=== PATIENT | female | born 1940 | race Caucasian/White ===

== ENCOUNTER 2018-12-06 12:09 | Emergency (ER) | payer MEDICARE, BC ==
[~2018-12-06] VITALS: Ht 167.6 cm; Wt 59.0 kg
[2018-12-06] MEDS ORDERED: ONDANSETRON 4 MG/2 ML VIAL IV ONE (12:45)
--- NOTE | 2018-12-06 12:45 | NUR ---
Patient walked into ER with daughter c/o N/V x3 days with symptoms worse in AM
[2018-12-06 12:46] LABS: BASOPHILS % (AUTO) 0.5 % (0.0-2.0); EOSINOPHILS % (AUTO) 0.5 % (0.0-7.0); HEMATOCRIT 37.4 % (31.2-41.9); HEMOGLOBIN 12.1 g/dL (10.9-14.3); LYMPHOCYTES % (AUTO) 25.3 % (20.5-51.5); MEAN CORPUSCULAR HEMOGLOBIN 27.4 uug (24.7-32.8); MEAN CORPUSCULAR HGB CONC 32 g/dL (32.3-35.6); MEAN CORPUSCULAR VOLUME 84.6 fL (75.5-95.3); MONOCYTES # (AUTO) 0.3 K/uL (2.0-10.0); MONOCYTES % (AUTO) 6.2 % (0.0-11.0); NEUTROPHILS # (AUTO) 2.8 K/uL (1.8-8.9); NEUTROPHILS % (AUTO) 67.5 % (38.5-71.5); PLATELET COUNT (AUTO) 149 K/uL (179-408); RED BLOOD CELL COUNT(AUTO) 4.42 MIL/uL (3.63-4.92); WHITE BLOOD COUNT (AUTO) 4.1 K/uL (3.8-11.8)
[2018-12-06 12:54] LABS: CARBON DIOXIDE 26 mmol/L (21-32); CHLORIDE 99 mmol/L (98-107); CREATININE 1.2 mg/dL (0.6-1.3); GLUCOSE 142 mg/dL (74-106); POTASSIUM 3.7 mmol/L (3.5-5.1); UREA NITROGEN, BLOOD 35 mg/dL (7-18)
[2018-12-06] MEDS ORDERED: ONDANSETRON 4 MG/2 ML VIAL ONE ×2 (12:55→15:38)
[2018-12-06 12:59] LABS: ALANINE AMINOTRANSFERASE 20 U/L (14-59); ALKALINE PHOSPHATASE 68 U/L (50-136); ASPARTATE AMINOTRANSFERASE 24 U/L (15-37); BILIRUBIN,DIRECT 0.3 mg/dL (0.0-0.2); BILIRUBIN,TOTAL 1.2 mg/dL (0.2-1.0); LIPASE 28 U/L (73-393); TOTAL PROTEIN, SERUM 7.4 g/dL (6.4-8.2)
[2018-12-06] MEDS ORDERED: IV NORMAL SALINE 1000 ML BAG IV ONE (13:45)
[2018-12-06 14:26] LABS: *BILIRUBIN,URIN NEGATIVE (NEGATIVE); *COLOR,URINE YELLOW (YELLOW); *KETONES,URINE NEGATIVE (NEGATIVE); *UROBILINOGEN,URINE 0.2 E.U./dl (NORMAL); LEUKOCYTE ESTERASE ,URINE 1+ (NEGATIVE); NITRITE, URINE NEGATIVE (NEGATIVE); UGLUCOSE NEGATIVE (NEGATIVE)
[2018-12-06 14:30] LABS: *BLOOD, URINE TRACE (NEGATIVE); *CLARITY,URINE SLIGHTLY CLOUDY (CLEAR)
[2018-12-06 14:39] LABS: BACTERIA,URINE MODERATE /HPF (NONE SEEN); RBC,URINE 0-3 /HPF (0-3); SQUAMOUS EPITHELIAL CELL,UR FEW /HPF (NONE SEEN)
--- NOTE | 2018-12-06 15:46 | NUR ---
IV removed. Catheter intact and site benign. Pressure and 4x4 gauze applied to site. No bleeding noted.
[2018-12-06 15:55] VITALS: BP 142/88
--- NOTE | 2018-12-06 15:55 | NUR ---
Patient discharged to home in stable conditon with daughter taking patient home. Written and verbal after care instructions given. Patient verbalizes understanding of instructions.
== END 2018-12-06 15:56 | disposition home or self-care (01) ==
LOC: ER 12:09
DX: R11.2 Nausea with vomiting, unspecified (principal); I10 Essential (primary) hypertension; E11.9 Type 2 diabetes mellitus without complications; Z95.0 Presence of cardiac pacemaker
CPT/HCPCS: 36415; 71045; 80048; 80076; 81001; 83690; 84484; 85025; 87086; 93005; 96374; 99284; J2405; 70030-TC; A4663; J7030

== ENCOUNTER 2019-03-28 05:53 | Emergency (ER) | payer MEDICARE, BC ==
[~2019-03-28] VITALS: Ht 170.2 cm; Wt 59.0 kg
[2019-03-28] MEDS ORDERED: ESTRADIOL 0.5 MG (06:07)
[2019-03-28] MEDS ORDERED: SYNTHROID 75 MCG (06:07)
[2019-03-28] MEDS ORDERED: [UNRECOGNIZED DRUG - CODE] (06:07)
[2019-03-28] MEDS ORDERED: PANTOPRAZOLE TAB 40MG (06:07)
--- NOTE | 2019-03-28 06:35 | NUR ---
Dr. Miles at bedside for MSE.
--- NOTE | 2019-03-28 06:40 | NUR ---
Urine collected, sent to lab.
[2019-03-28] MEDS ORDERED: IV NORMAL SALINE 1000 ML BAG IV ONE (06:45)
[2019-03-28] MEDS ORDERED: PANTOPRAZOLE SODIUM 40 MG VIAL IV ONE (06:45)
[2019-03-28] MEDS ORDERED: ONDANSETRON 4 MG/2 ML VIAL IV ONE (06:45)
[2019-03-28] MEDS ORDERED: ONDANSETRON 4 MG/2 ML VIAL ONE (06:48)
[2019-03-28] MEDS ORDERED: PANTOPRAZOLE SODIUM 40 MG VIAL ONE (06:48)
--- NOTE | 2019-03-28 06:53 | NUR ---
Xray at bedside.
[2019-03-28 06:55] LABS: BASOPHILS % (AUTO) 0.7 % (0.0-2.0); EOSINOPHILS # (AUTO) 0.1 K/uL (0.0-0.7); EOSINOPHILS % (AUTO) 1.6 % (0.0-7.0); HEMATOCRIT 35.1 % (31.2-41.9); HEMOGLOBIN 11.6 g/dL (10.9-14.3); LYMPHOCYTES % (AUTO) 21.7 % (20.5-51.5); MEAN CORPUSCULAR HEMOGLOBIN 28.2 uug (24.7-32.8); MEAN CORPUSCULAR HGB CONC 33 g/dL (32.3-35.6); MEAN CORPUSCULAR VOLUME 85.4 fL (75.5-95.3); MONOCYTES # (AUTO) 0.5 K/uL (2.0-10.0); MONOCYTES % (AUTO) 9.6 % (0.0-11.0); NEUTROPHILS # (AUTO) 3.2 K/uL (1.8-8.9); NEUTROPHILS % (AUTO) 66.4 % (38.5-71.5); PLATELET COUNT (AUTO) 158 K/uL (179-408); RED BLOOD CELL COUNT(AUTO) 4.11 MIL/uL (3.63-4.92); WHITE BLOOD COUNT (AUTO) 4.8 K/uL (3.8-11.8)
[2019-03-28 06:57] LABS: *BILIRUBIN,URIN NEGATIVE (NEGATIVE); *BLOOD, URINE 1+ (NEGATIVE); *CLARITY,URINE SLIGHTLY CLOUDY (CLEAR); *COLOR,URINE YELLOW (YELLOW); *KETONES,URINE NEGATIVE (NEGATIVE); *UROBILINOGEN,URINE 0.2 E.U./dl (NORMAL); LEUKOCYTE ESTERASE ,URINE 2+ (NEGATIVE); NITRITE, URINE NEGATIVE (NEGATIVE); UGLUCOSE NEGATIVE (NEGATIVE)
--- NOTE | 2019-03-28 06:57 | NUR ---
Report given to Giovanni maria.
[2019-03-28 07:01] LABS: CARBON DIOXIDE 25 mmol/L (21-32); CHLORIDE 108 mmol/L (98-107); CREATININE 0.9 mg/dL (0.6-1.3); GLUCOSE 113 mg/dL (74-106); UREA NITROGEN, BLOOD 18 mg/dL (7-18)
[2019-03-28 07:06] LABS: BACTERIA,URINE FEW /HPF (NONE SEEN); SQUAMOUS EPITHELIAL CELL,UR FEW /HPF (NONE SEEN); YEAST,URINE MODERATE /HPF (NONE SEEN)
[2019-03-28 07:07] LABS: ALANINE AMINOTRANSFERASE 13 U/L (14-59); ALKALINE PHOSPHATASE 38 U/L (50-136); ASPARTATE AMINOTRANSFERASE 13 U/L (15-37); BILIRUBIN,DIRECT 0.2 mg/dL (0.0-0.2); BILIRUBIN,TOTAL 0.6 mg/dL (0.2-1.0); LIPASE 89 U/L (73-393); TOTAL PROTEIN, SERUM 7.4 g/dL (6.4-8.2)
[2019-03-28] MEDS ORDERED: ONDANSETRON ODT 4 MG TAB.RAPDIS ONE (07:28)
--- NOTE | 2019-03-28 11:09 | NUR ---
PT WAS D/C'd TO HOME. D/C INSTRUCTIONS GIVEN TO THE PT BY DR ESCOBEDO.
[2019-03-28 11:12] VITALS: BP 126/81
== END 2019-03-28 11:12 | disposition home or self-care (01) ==
LOC: ER 05:56
DX: R11.2 Nausea with vomiting, unspecified (principal); N39.0 Urinary tract infection, site not specified; I10 Essential (primary) hypertension; E11.9 Type 2 diabetes mellitus without complications; Z95.0 Presence of cardiac pacemaker; Z79.899 Other long term (current) drug therapy
CPT/HCPCS: 36415; 71045; 74021; 80048; 80076; 81000; 81001; 83690; 84484; 85025; 85730; 87086; 93005; 96374; 96375; 99284; C9113; J2405; 70030-TC; A4663; J7030; Q0162

== ENCOUNTER 2019-05-26 16:33 | Inpatient (IN) | payer MEDICARE, BC ==
[~2019-05-26] VITALS: Ht 170.2 cm; Wt 57.2 kg
[~2019-05-26 16:33] MED LIST: ESTRADIOL 0.5 MG; PANTOPRAZOLE TAB 40MG; SYNTHROID 75 MCG; [UNRECOGNIZED DRUG - CODE]
[2019-05-26 18:06] LABS: BASOPHILS % (AUTO) 0.6 % (0.0-2.0); EOSINOPHILS % (AUTO) 0.2 % (0.0-7.0); HEMATOCRIT 35.1 % (31.2-41.9); HEMOGLOBIN 11.6 g/dL (10.9-14.3); LYMPHOCYTES # (AUTO) 0.6 K/uL (20.0-40.0); LYMPHOCYTES % (AUTO) 11.1 % (20.5-51.5); MEAN CORPUSCULAR HEMOGLOBIN 28.6 uug (24.7-32.8); MEAN CORPUSCULAR HGB CONC 33 g/dL (32.3-35.6); MEAN CORPUSCULAR VOLUME 86.2 fL (75.5-95.3); MONOCYTES # (AUTO) 0.2 K/uL (2.0-10.0); MONOCYTES % (AUTO) 4.3 % (0.0-11.0); NEUTROPHILS # (AUTO) 4.6 K/uL (1.8-8.9); NEUTROPHILS % (AUTO) 83.8 % (38.5-71.5); PLATELET COUNT (AUTO) 147 K/uL (179-408); RED BLOOD CELL COUNT(AUTO) 4.07 MIL/uL (3.63-4.92); WHITE BLOOD COUNT (AUTO) 5.5 K/uL (3.8-11.8)
[2019-05-26 18:19] LABS: CREATININE 0.8 mg/dL (0.6-1.3); POTASSIUM 3.7 mmol/L (3.5-5.1)
[2019-05-26 18:29] LABS: BILIRUBIN,DIRECT 0.3 mg/dL (0.0-0.2); BILIRUBIN,TOTAL 1.2 mg/dL (0.2-1.0); TOTAL PROTEIN, SERUM 7.3 g/dL (6.4-8.2)
--- NOTE | 2019-05-26 19:17 | NUR ---
PATIENT UNABLE TO RECALL ALL OF HOME MEDICATION AND DOSAGES AT THIS TIME.
--- NOTE | 2019-05-26 19:17 | NUR ---
HAND OFF AND SBAR FROM OUTGOING RN DAY SHIFT. DAUGHTER NUMBER EVANGELINA [phone] STATES WILL REFAX MEDICATION LIST AGAIN SINCE SHE SENT IT 5PM BUT HAS NOT RECEIVED ANY IN THE ER
--- NOTE | 2019-05-26 19:55 | NUR ---
ABLE TO RECONCILE MEDICATIONS OVER THE PHONE FROM DAUGHTER [phone] TRIED TO CALL THE TELE FLOOR BUT STILL WAITING FOR RN INCOMING QUALITY ASSURANCE MONITOR CHASSIS FOR ENDORSEMENT. KEPT COMFORTABLE. SIDERAILSX2 UP , BED AT LOWEST POSITION. MONITORED ACCORDINGLY
[2019-05-26] MEDS ORDERED: ONDANSETRON 4 MG/2 ML VIAL IV PRN (20:00)
[2019-05-26] MEDS ORDERED: Z GUARD REMEDY PASTE 57 GM TUBE TOP PRN (20:00)
[2019-05-26] MEDS ORDERED: MAGNESIUM HYDROXIDE 30 ML LIQUID UDC PO PRN (20:00)
[2019-05-26] MEDS ORDERED: ACETAMINOPHEN 325 MG TABLET PO PRN (20:00)
[2019-05-26] MEDS ORDERED: HYDROCODONE/APAP 5-325MG TABLET PO PRN (20:00)
[2019-05-26] MEDS ORDERED: GLIM1TAB3 PO (20:12)
[2019-05-26] MEDS ORDERED: LEVO75TA PO (20:12)
[2019-05-26] MEDS ORDERED: LOSA25TA27 PO (20:12)
[2019-05-26] MEDS ORDERED: ROPI5TAB PO (20:13)
[2019-05-26] MEDS ORDERED: SIMV10TA6 PO (20:13)
[2019-05-26] MEDS ORDERED: URSO250T11 PO (20:13)
[2019-05-26] MEDS ORDERED: TRIA1CAP2 PO (20:13)
[2019-05-26] MEDS ORDERED: ONDA4TAB5 GT (20:13)
[2019-05-26] MEDS ORDERED: LIPA1CAP8 PO (20:13)
[2019-05-26] MEDS ORDERED: PANT40TA4 PO (20:13)
--- NOTE | 2019-05-26 21:17 | NUR ---
HAND OFF DONE TO VANE JACKSON FOR TELE FLOOR. PT READY FOR TRANSPORT VIA [facility]
--- NOTE | 2019-05-26 21:26 | NUR ---
PT WILL BE ADMITTED TO TELE RM [address] LOCK
--- NOTE | 2019-05-26 21:47 | NUR ---
TRANSPORTED BY MOLD INJECTOR VIA WHEELCHAIR. PT NAD AND COMPLIANT. DENIES NAUSEA BUT EMESISX1, PT DECLINED MEDICINE FOR NAUSEA AT THIS TIME. MD AWARE. NO OTHER SYMPTOMS
[2019-05-26] MEDS ORDERED: ENOXAPARIN SODIUM 40 MG/0.4 ML DISP.SYRIN SQ ONE (22:00)
--- NOTE | 2019-05-26 22:00 | NUR ---
Admitted a 78 y.o female patient from ER via wheelchair DX: near Syncope. Patient ASYA QUEZADA noted. Attached to Tele monitor: Atrial pacing rate 60's. Assessment done. Routine care, fall and safety precautions discussed with patient. Patient seems to understand instructions but with forgetfulness. Spoke to patient's daughter Veronica cell # [phone]. PMH obtained from her. Plan of care also discussed with her. Addendum: 05/27/19 at 0108 by MANUEL POST RN Amended: Links added. Addendum: 05/27/19 at 0110 by MANUEL POST RN Amended: Links added.
[2019-05-26 22:24] VITALS: BP 146/72
[2019-05-26] MEDS: IV NS 1000 ML 1,000 ML IV PRN (22:59)
--- NOTE | 2019-05-26 23:15 | NUR ---
Up to the BR with assist. Patient denies dizziness. Voided.
--- NOTE | 2019-05-27 01:00 | NUR ---
Assisted up to the BR again. Continues to deny dizziness. Gait steady. Patient very appreciative of care.
[2019-05-27 06:13] VITALS: BP 141/61
[2019-05-27 06:30] LABS: BASOPHILS % (AUTO) 0.7 % (0.0-2.0); EOSINOPHILS # (AUTO) 0.1 K/uL (0.0-0.7); EOSINOPHILS % (AUTO) 1.5 % (0.0-7.0); HEMATOCRIT 34.3 % (31.2-41.9); HEMOGLOBIN 11.5 g/dL (10.9-14.3); LYMPHOCYTES # (AUTO) 1.5 K/uL (20.0-40.0); LYMPHOCYTES % (AUTO) 33.1 % (20.5-51.5); MEAN CORPUSCULAR HEMOGLOBIN 28.5 uug (24.7-32.8); MEAN CORPUSCULAR HGB CONC 34 g/dL (32.3-35.6); MEAN CORPUSCULAR VOLUME 84.7 fL (75.5-95.3); MONOCYTES # (AUTO) 0.4 K/uL (2.0-10.0); MONOCYTES % (AUTO) 7.8 % (0.0-11.0); NEUTROPHILS # (AUTO) 2.6 K/uL (1.8-8.9); NEUTROPHILS % (AUTO) 56.9 % (38.5-71.5); PLATELET COUNT (AUTO) 149 K/uL (179-408); RED BLOOD CELL COUNT(AUTO) 4.04 MIL/uL (3.63-4.92); WHITE BLOOD COUNT (AUTO) 4.7 K/uL (3.8-11.8)
--- NOTE | 2019-05-27 06:31 | NUR ---
No c/o pain or dizziness all night. VS stable. IVF infusing well.
[2019-05-27] MEDS: LEVOTHYROXINE SODIUM 75 MCG TABLET PO SCH (06:36)
[2019-05-27 06:43] LABS: CARBON DIOXIDE 27 mmol/L (21-32); CHLORIDE 107 mmol/L (98-107); CHOLESTEROL 81 mg/dL (<200); CREATININE 0.6 mg/dL (0.6-1.3); GLUCOSE 79 mg/dL (74-106); HDL CHOLESTEROL 42 mg/dL (40-60); MAGNESIUM 1.5 mg/dL (1.8-2.4); PHOSPHOROUS 2.5 mg/dL (2.5-4.9); POTASSIUM 3.3 mmol/L (3.5-5.1); TRIGLYCERIDES 65 MG/DL (30-150); UREA NITROGEN, BLOOD 9 mg/dL (7-18)
[2019-05-27 06:51] LABS: THYROID STIMULATING HORMONE 4.164 mIU/mL (0.358-3.740)
--- NOTE | 2019-05-27 07:15 | NUR ---
RECEIVED PATIENT LAYING IN BED, AOX3. PATIENT DENIES ANY PAIN AND DISCOMFORT. NO ACUTE DISTRESS NOTED AT THIS TIME. JAMAAL IN LOWEST POSITION, SIDE RAILS UP X2, CALL LIGHT WITHIN REACH, BED ALARM ON. WILL CONTINUE TO MONITOR.
[2019-05-27] MEDS ORDERED: DEXTROSE 50% 50 ML DISP.SYRIN IV PRN (10:00)
[2019-05-27 11:00] VITALS: BP 134/60
[2019-05-27] MEDS ORDERED: POTASSIUM CHLORIDE 20 MEQ TAB.PRT.SR PO ONE (11:00)
[2019-05-27] MEDS: MAGNESIUM SULFATE/D5W 100 ML IV SCH ×2 (11:08→12:45)
[2019-05-27 11:18] LABS: *BILIRUBIN,URIN NEGATIVE (NEGATIVE); *BLOOD, URINE 1+ (NEGATIVE); *CLARITY,URINE CLOUDY (CLEAR); *COLOR,URINE YELLOW (YELLOW); *KETONES,URINE NEGATIVE (NEGATIVE); *UROBILINOGEN,URINE 0.2 E.U./dl (NORMAL); LEUKOCYTE ESTERASE ,URINE 3+ (NEGATIVE); NITRITE, URINE NEGATIVE (NEGATIVE); UGLUCOSE NEGATIVE (NEGATIVE)
[2019-05-27 11:38] LABS: BACTERIA,URINE FEW /HPF (NONE SEEN); RBC,URINE 0-3 /HPF (0-3); SQUAMOUS EPITHELIAL CELL,UR FEW /HPF (NONE SEEN); WBC,URINE 20-50 /HPF (0-3)
[2019-05-27] MEDS: BLOOD SUGAR DIAGNOSTIC 1 EACH STRIP VI SCH ×3 (11:46→22:16)
[2019-05-27] MEDS: INSULIN REGULAR, HUMAN 300 UNIT/3 ML VIAL SQ PRN ×2 (11:46→22:20)
[2019-05-27] MEDS: CREON 24000 UNIT PO SCH ×2 (13:09→17:50)
[2019-05-27] MEDS: CEphaleXIN 500 MG CAPSULE PO SCH ×3 (14:00→21:59)
--- NOTE | 2019-05-27 15:10 | NUR ---
WENT IN TO DO PATIENT ROUNDING, PATIENT WAS NO WHERE TO BE FOUND. CALLED SECURITY REVIEW CAMERAS AND PATIENT WAS NOT FOUND. PATIENTS DAUGHTER THEN CALL AND INFORMED US PATIENT WAS AT [facility]. PATIENT REFUSES TO RETURN TO FACILITY AND LEAVING AMA.
--- NOTE | 2019-05-27 17:37 | NUR ---
KENISHA, but now back at hospital. Drastically increased paranoia noted. A/O on assessment, but noted unrelenting mistrust and suspicion toward hospital staff. Call to Dr. Gunn regarding change in behavior, no new orders received. Pending PET eval. Team called, en route to hospital for face to face assessment. Informed/updated daughter of patient status.
--- NOTE | 2019-05-27 19:30 | NUR ---
Received patient in bed AA&Ox2 w/ forgetfulness. No SOB noted, not in distress at this time. Continue w/ 1:1 sitter for safety. No IV at this time, offered patient to reinsert IV but stated she wants to wait for her daughter. Safety measures observed. Call light in reach
[2019-05-27] MEDS: ENOXAPARIN SODIUM 40 MG/0.4 ML DISP.SYRIN SQ SCH ×2 (21:00→21:58)
[2019-05-27] MEDS: IV NS 1000 ML 1,000 ML IV PRN (21:13)
--- NOTE | 2019-05-27 21:30 | NUR ---
Inserted IV to R AC 20g intact and patent, w/ IV NS 0.9% @ 75cc/hr. Patient refused her Lovenox, explained risks and benefits, still refused. Daughter at bedside. Will continue to monitor
[2019-05-28] MEDS ORDERED: MAG HYDROX/AL HYDROX/SIMETH 30 ML LIQUID UDC PO PRN (00:30)
--- NOTE | 2019-05-28 02:00 | NUR ---
IV site was pulled out, patient wants it to be reinserted in the morning.
[2019-05-28 05:53] VITALS: BP 141/61
[2019-05-28] MEDS: CEphaleXIN 500 MG CAPSULE PO SCH ×2 (06:04→13:36)
--- NOTE | 2019-05-28 06:14 | NUR ---
Patient slept intermittently. No SOB noted, not in distress. No complaints of pain at this time. Cont on 1:1 sitter for safety and risk for elopement. All needs attended. Call light within reach
[2019-05-28] MEDS: LEVOTHYROXINE SODIUM 75 MCG TABLET PO SCH (06:25)
[2019-05-28] MEDS: BLOOD SUGAR DIAGNOSTIC 1 EACH STRIP VI SCH ×2 (06:33→11:36)
[2019-05-28] MEDS ORDERED: PANTOPRAZOLE SODIUM 40 MG TABLET.DR PO ONE (07:00)
--- NOTE | 2019-05-28 07:10 | NUR ---
RECEIVED PATIENT AWAKE AND IN BED. PATIENT ALERT AND ORIENTED X2-3. NO ACUTE DISTRESS NOTED AT THIS TIME. SITTER AN DAUGHTER AT BEDSIDE. BED IN LOWEST POSITION, CALL LIGHT WITHIN REACH, SIDE RAILS UP X2. WILL CONTINUE TO MONITOR.
[2019-05-28] MEDS: CREON 24000 UNIT PO SCH ×2 (08:37→12:21)
[2019-05-28 12:11] VITALS: BP 119/65
[2019-05-28] MEDS: INSULIN REGULAR, HUMAN 300 UNIT/3 ML VIAL SQ PRN (12:22)
[2019-05-28 12:27] VITALS: BP 141/67
--- NOTE | 2019-05-28 14:32 | NUR ---
Clinical Social Work Note Pt. presents as more paranoid than yesterday. She is also rather hostile today and states " You just want me here another night. People can get extra money." She has no insight and was very suspicious of Keflex being given by her RN. She stated " I better not take this. I don't know what it is." Daughter reiterated that it was Keflex for her UTI. Pt. then agreed to take the antibiotic. Patient is very suspicious of all staff. She said " I have access to [place] radio so you know what can happen". Daughter recognizes that her mother is very paranoid but says she will refuse to take psychotropic medication. Daughter asked for advice regarding decision-making and taking over her mother's affairs. This social work specialist suggested she apply for probate conservatorship. Daughter said she would proceed with this. Egg Crater expressed Dr Coker's concern about patient's confusion and cognitive deficits and felt she should not live alone. This was conveyed to the daughter who said she " will try to take her mother with her to [place]'. This policy writer sales said that pt. was not taking care of herself physically and appeared very thin and this was both Dr Coker and this policy writer sales's concern. Daughter heard this and said she was taking this into consideration. Daughter does not want pt. on the MHU unit and will take responsibility for her care. This means the pateint is no loner gravely disabled. Dr Coker has discontinued her 5150 and gave the order to stop the 5150 to Bekah CIFUENTES. Lalit, nursing wrecking supervisor was notified regarding status.
--- NOTE | 2019-05-28 15:00 | NUR ---
PATIENT RELEASED FORM HOLD. DISCHARGE PROCESSED. REVIEWED D/C INSTRUCTIONS WITH PATIENT AND DAUGHTER. PATIENT SIGNED DISCHARGE INSTRUCTIONS. PATIENT DISCHARGED VIA PRIVATE CAR WITH DAUGHTER.
--- NOTE | 2019-05-28 15:40 | NUR ---
Per Dr. Gunn: orders to charge discharge orders from [facility] to a discharged home with home health: [facility] (O)[phone] (F)[phone]. Noted and carried out.
[2019-05-29] MEDS ORDERED: LOSARTAN POTASSIUM 25 MG TABLET PO SCH (09:00)
== END 2019-05-28 14:45 | disposition home health service (06) | DRG 74 ==
LOC: ER 16:33 → TELE3 21:35 → MEDSURG3 05-27 14:30 → TELE3 05-27 16:21
DX: G90.8 Other disorders of autonomic nervous system (principal); N39.0 Urinary tract infection, site not specified; F29 Unspecified psychosis not due to a substance or known physiological condition; F41.9 Anxiety disorder, unspecified; F03.90 Unspecified dementia, unspecified severity, without behavioral disturbance, psychotic disturbance, mood disturbance, and anxiety; I10 Essential (primary) hypertension; E11.9 Type 2 diabetes mellitus without complications; Z95.0 Presence of cardiac pacemaker; Z85.07 Personal history of malignant neoplasm of pancreas; Z90.411 Acquired partial absence of pancreas
CPT/HCPCS: 36415; 70030-TC; 71045; 83690; 83735; 84100; 84443; 85025; 85730; 87086; 93005; 93307; 93880; A4663; G0378; J1650; J1815; J3475; J7030